=== PATIENT | female | born 1965 | race Caucasian/White ===

== ENCOUNTER 2021-12-17 15:27 | Outpatient (CLI) | payer OTHER, SELFPAY ==
--- NOTE | 2021-12-17 | IMM_PTH ---
PATIENT: HILARIO LOWRY LOC: [facility] U#:[id number] AGE/SX: 56/F ROOM: RE12/17/[address]: Dr. Yahaira Lauren MD : 1965 BED: DIS: 12/17/2021 SPEC #: [id number] RECD: 12/21/21 13:12 STATUS: VJ REHossein #: [id number] YANIV: 12/17/21 00:[address]: Yahaira Lauren DEPT: IMMUNOHISTOCHEMISTRY RECD BY: Josselyn Mckeon Tissues: Left breast, NOS Procedures: CALPONIN-1 (add) CK5-6 (add) CK8 (add) SEGUNDO-2 (add) E-CAD (add) HER2 THERON (add) KI-67 (add) P53 (add) IA (add) P40 (add) ER (initial) PHYSICIAN & INSTITUTION [place] [phone] SPECIMEN INFORMATION: Tissue Source: Left breast tissue Clinical Info: Left breast mass Specimen Number: [id number] CPT code: 98721, 01667 x7, 93587 x3 METHODOLOGY: Deparaffinized sections of prefer/formalin-fixed tissue or PAP/DQ stained slides are incubated with monoclonal/polyclonal antibodies/oligonucleotide probes. Localization is made via biotin free immunoperoxidase method. Appropriate controls are performed and reacted as expected. Results on target cell population are indicated in the following table: RESULTS: ANTIBODY / CLONE RESULT P53 (DO-7) positive, 10% dim Ki-67 (30-9) positive, 85% CK8 (36bnmyO10) positive CK5-6 (D5 & 1684) negative Calponin-1 (ZI879Y) negative P40 (BC28) negative E-Cad (ECH-6) positive SEGUNDO-2 (SP21) positive MORPHOMETRIC ANALYSIS ER (clone 6F11) >95%, strong intensity IA (clone 16/1E2) 60%, moderate to strong intensity Her-2Neu (clone CB11) 0 The prognostic test for HER2 is performed on formalin-fixed paraffin embedded tissue. A 3+ (positive) staining pattern is defined as intense, homogeneous, complete, circumferential membranous staining in >10% of contiguous tumor cells. A similar weak (2+) staining pattern is interpreted as equivocal. ANETA follow-up testing is recommended for all equivocal cases. Positivity/negativity for ER/IA is reported if > or < 1% of the tumor cells are immuno- reactive, respectively. The ASCO/CAP criteria is used for scoring. Reference: Journal of Clinical Oncology, 2013; 31:7584-8132 & 2010; 16:3105-8903. Duration of fixation: 5 Hrs; Sample Adequate: Yes. These assays have not been validated on decalcified tissues. Results should be interpreted with caution given the likelihood of false negativity on decalcified specimens. These tests were developed and their performance characteristics determined by [facility]. They may not have been cleared or approved by the U.S. Food and Drug Administration. The FDA has determined that such clearance or approval is not necessary. The above immunohistochemical/dualISH markers are ordered and reviewed by the Pathologist. 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 Positive for estrogen receptors (favorable prognostic indicator). Positive for progesterone receptors (favorable prognostic indicator). Negative for overexpression of XYI4xpb. AM:loc 12/22/2021
--- NOTE | 2021-12-17 14:40 | BRBX_PTH ---
PATIENT: HILARIO LOWRY LOC: [facility] U#:[id number] AGE/SX: 56/F ROOM: RE12/17/[address]: Dr. Yahaira Lauren MD : 1965 BED: DIS: 12/17/2021 SPEC #: [id number] RECD: 12/17/21 15:24 STATUS: VJ AURORA #: [id number] YANIV: 12/17/21 14:[address]: Yahaira Lauren DEPT: SURGICAL PATHOLOGY RECD BY: Cindy Ewing Tissues: Left breast, NOS Procedures: Surgery Specimen Level IV HEADER OPERATION: Left breast biopsy PRE-OP DIAGNOSIS: Left breast mass TISSUE SUBMITTED: Left breast tissue MICROSCOPIC DIAGNOSIS Left breast mass, core biopsy: Invasive ductal carcinoma with the following characteristics: Nuclear grade ? 2-3/3. Maximal length ? 13 millimeters See comment. AM:loc 12/21/2021 COMMENT ER/MA/Lbu2rqi studies are being performed on sections of tumor and the results from this study will be reported separately ([id number]). Case has been reviewed in consultation with Dr. Shepherd who concurs with the above diagnosis. IDC:SJ MICROSCOPIC DESCRIPTION Slides are reviewed. GROSS DESCRIPTION Received in fixative is one container labeled with the patient's name and designated left breast. The specimen consists of multiple elongated fragments of shearer-yellow fibroadipose tissue that in aggregate measure 2 x 0.2 x 0.1 cm. The entire specimen is submitted in one cassette. / SJ:loc 12/18/2021 TC:0 CPT: 20143
== END 2021-12-17 23:59 | disposition home or self-care (01) ==
LOC: LAB 15:28
PROVIDERS: Visit Provider Surgery
DX: N63.20 Unspecified lump in the left breast, unspecified quadrant (principal)
CPT/HCPCS: 88305; 88341; 88342

== ENCOUNTER → 2022-01-07 | Outpatient (CLI) | payer SELFPAY, OTHER ==
--- NOTE | 2022-01-07 08:03 | NM_ITS ---
CLINICAL: Female, 56 years old. Breast cancer, staging WHOLE BODY NUCLEAR BONE SCAN TECHNIQUE: Following the IV administration of 26 mCi of Tc MDP, whole body bone imaging was performed with a gamma camera following a three hour delay. COMPARISON STUDIES : NM - None. CR - Not available for review at this time. CT - Not available for review at this time. MR - Not available for review at this time. US - Not available for review at this time. FINDINGS: There is a normal concentration of radiopharmaceutical throughout the axial and appendicular skeletal system without a significant focal decrease or increase in uptake to suspect metastasis. There is generalized increased activity in both shoulder joints and both feet to suspect degenerative arthropathy. NM/Bone Scan Whole Body IMPRESSION: No suspicious increased activity to suspect osseous metastasis or acute inflammatory process Generalized increased activity in both shoulders and both feet suggesting degenerative changes Electronically Signed: Garett Mayfield MD at 10:13 EDT ,
== END | disposition home or self-care (01) ==
LOC: NM 08:02
PROVIDERS: Referring Provider Internal Medicine Medical Oncology; Visit Provider Internal Medicine Medical Oncology
DX: C50.411 Malignant neoplasm of upper-outer quadrant of right female breast (principal)
CPT/HCPCS: 78306; A9503

== ENCOUNTER → 2022-01-11 | Outpatient (CLI) | payer SELFPAY, OTHER ==
--- NOTE | 2022-01-11 08:48 | CT_ITS ---
EXAM: CT CHEST, ABDOMEN AND PELVIS WITH INTRAVENOUS CONTRAST CLINICAL INDICATION: L BREAST CA-STAGING TECHNIQUE: Helically acquired images were obtained of the chest, abdomen and pelvis with intravenous contrast. This CT exam was performed using one or more of the following dose reduction techniques: automated exposure control, adjustment of the mA and/or kV according to patient size, and/or use of iterative reconstruction technique. This report was created using [employer] report generation technology. CONTRAST: Oral and amp; IV Redi-CAT and amp; 100mL Isovue-300 COMPARISON: None. FINDINGS: CHEST: LUNGS AND PLEURAL SPACES: Small right pleural effusion is present. No mass. No pneumothorax. HEART: Unremarkable. Heart size is normal. No pericardial effusion. No significant coronary artery calcifications. MEDIASTINUM: No significantly enlarged mediastinal or hilar lymph nodes. Esophagus is unremarkable. No hiatal hernia. THYROID: Unremarkable. No thyroid lesions. ABDOMEN: LIVER: Mild hepatic steatosis noted. GALLBLADDER AND BILE DUCTS: Multiple calcified stones are present within the gallbladder. No gallbladder distention or wall edema. No intra- or extrahepatic biliary ductal dilation. PANCREAS: Unremarkable. No focal cystic or solid mass. SPLEEN: Unremarkable. Normal size without focal cystic or solid mass. ADRENALS: Unremarkable. No nodules. KIDNEYS AND URETERS: Unremarkable. Normal renal size and position. No hydronephrosis. STOMACH AND BOWEL: Diverticulosis of the colon without evidence of acute diverticulitis. No stomach or bowel distention. PELVIS: APPENDIX: Appendix is visualized and normal in appearance. BLADDER: Unremarkable. REPRODUCTIVE: Unremarkable as visualized. No mass. CHEST, ABDOMEN and PELVIS: INTRAPERITONEAL SPACE: Unremarkable. No ascites or other fluid collection. No free air. BONES/JOINTS: An 8 mm rounded area of sclerosis within the T10 vertebral body of uncertain significance. SOFT TISSUES: A 4 x 2 cm spiculated left breast mass noted associated with nipple retraction and skin thickening consistent with the patient''s known breast cancer. No discrete abdominal or pelvic wall hernia. VASCULATURE: Unremarkable. Aorta is non-dilated. No aortic dissection. No obvious central pulmonary embolism although this study was not performed with the pulmonary embolism protocol. LYMPH NODES: Enlarged left axillary lymph nodes noted suggestive of metastatic disease. CT/CT Chest, Abd, Pel w/Contrast IMPRESSION: 1. 4 x 2 cm left breast mass associated with left axillary lymphadenopathy. 2. Small left pleural effusion. 3. Mild hepatic steatosis. 4. 8mm sclerotic nodule within the T10 vertebral body of uncertain significance. Electronically Signed: Fabrizio Chao MD at 10:03 EDT ,
== END | disposition home or self-care (01) ==
PROVIDERS: Referring Provider Internal Medicine Medical Oncology; Visit Provider Internal Medicine Medical Oncology
DX: C50.411 Malignant neoplasm of upper-outer quadrant of right female breast (principal)
CPT/HCPCS: 71260; 74177; Q9967